=== PATIENT | male | born 1945 | race Caucasian/White ===

== ENCOUNTER → 2019-10-29 | Outpatient (CLI) | payer MEDICARE ==
--- NOTE | 2019-10-29 22:03 | NM ---
EXAMINATION TYPE: NM brain SPECT DATE OF EXAM: 10/29/2019 COMPARISON: Prior nuclear medicine brain SPECT study July 14, 2015. HISTORY: Signs and symptoms involving cognitive functions and awareness per order. TECHNIQUE: Following injection of 23.3 mCi Tc 99m Neurolite, SPECT images of the brain were obtained and reconstructed in three axes. Images obtained 45 minutes post injection. FINDINGS: No foci of significantly abnormal diminished metabolism. The remainder of the brain perfusion is norm al without evidence of a classic dementia pattern. IMPRESSION: As above.
== END | disposition home or self-care (01) ==
LOC: RADNMMAIN 12:42
PROVIDERS: ATTEND Internal Medicine Infectious Disease
DX: R41.89 Other symptoms and signs involving cognitive functions and awareness (principal)
CPT/HCPCS: 78803; A9557